=== PATIENT | male | born 1975 | race Caucasian/White ===

== ENCOUNTER 2017-04-14 19:35 | Emergency (ER) | payer BC ==
[2017-04-14] MEDS ORDERED: SODIUM CHLORIDE 0.9% 1,000 ML IV STA (19:58)
--- NOTE | 2017-04-14 20:00 | ED ---
General Adult HPI - General Chief complaint: Arrhythmia/Palpitations Stated complaint: heart concerns Time Seen by Provider: 04/14/17 19:51 Source: patient, RN notes reviewed Mode of arrival: ambulatory Limitations: no limitations - History of Present Illness Initial comments: Patient is a pleasant 41-year-old male presenting to the emergency department complaining of palpitations. Onset of symptoms was around a week ago, symptoms worsen today. Patient is currently symptom-free. Patient complains that he feels like his heart is being harder than normal. Heart is not racing. Heart is not skipping. No chest pain. No dyspnea. No history of similar symptoms previously. No leg pain or leg swelling. - Related Data Home Medications Medication Instructions Recorded Confirmed Albuterol Inhaler [Ventolin Hfa 1 - 2 puff INHALATION RT-Q6H PRN 04/14/17 Inhaler] Dextroamphetamine/Amphetamine 30 mg PO QAM 04/14/17 04/14/17 [Adderall Xr] Ergocalciferol [Vitamin D2 50,000 unit PO TU 04/14/17 04/14/17 (DRISDOL)] Losartan [Cozaar] 25 mg PO HS 04/14/17 04/14/17 PARoxetine [Paxil] 20 mg PO DAILY 04/14/17 04/14/17 buPROPion XL [Wellbutrin Xl] 150 mg PO DAILY 04/14/17 04/14/17 Allergies Allergy/AdvReac Type Severity Reaction Status Date / Time Iodinated Contrast Media - Allergy Unknown Verified 04/14/17 20:12 Oral and Childhood Review of Systems ROS Statement: Those systems with pertinent positive or pertinent negative responses have been documented in the HPI. ROS Other: All systems not noted in ROS Statement are negative. Constitutional: Denies: fever Eyes: Denies: eye pain ENT: Denies: ear pain Respiratory: Denies: cough, dyspnea Cardiovascular: Reports: palpitations. 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 Absent: chest wall tenderness Cardiovascular Exam: Present: regular rate, normal rhythm, normal heart sounds Expanded Peripheral pulses: 2+: Radial (R), Radial (L), Posterior Tibialis (R), Posterior Tibialis (L) GI/Abdominal exam: Present: soft. Absent: tenderness Extremities exam: Present: normal inspection. Absent: pedal edema, calf tenderness Neurological exam: Present: alert Psychiatric exam: Present: normal affect, normal mood Skin exam: Present: normal color. Absent: rash Course Vital Signs 04/14/17 19:36 Temperature 97.9 F Pulse Rate 87 Respiratory 16 Rate Blood Pressure 155/85 O2 Sat by Pulse 100 Oximetry EKG Findings - EKG Comments: EKG Findings:: Normal sinus rhythm at 85. Normal intervals. Normal axis. Normal QRS. Normal ST-T. Medical Decision Making - Medical Decision Making Patient reevaluated and resting comfortably in bed. Patient does have occasional PVCs and states his symptoms are associated with the PVCs noted on the monitor. Patient and family updated on results and need for follow-up. - Lab Data Result diagrams: 04/14/17 19:52 04/14/17 19:52 Lab Results 04/14/17 04/14/17 04/14/17 Range/Units 19:52 19:52 19:52 WBC 11.5 H (3.8-10.6) k/uL RBC 4.88 (4.30-5.90) m/uL Hgb 14.4 (13.0-17.5) gm/dL Hct 42.2 (39.0-53.0) % MCV 86.4 (80.0-100.0) fL MCH 29.4 (25.0-35.0) pg MCHC 34.1 (31.0-37.0) g/dL RDW 13.5 (11.5-15.5) % Plt Count 337 (150-450) k/uL Neutrophils % 68 % Lymphocytes % 19 % Monocytes % 6 % Eosinophils % 4 % Basophils % 1 % Neutrophils # 7.9 H (1.3-7.7) k/uL Lymphocytes # 2.2 (1.0-4.8) k/uL Monocytes # 0.7 (0-1.0) k/uL Eosinophils # 0.5 (0-0.7) k/uL Basophils # 0.1 (0-0.2) k/uL PT (9.0-12.0) sec INR (<1.1) APTT (22.0-30.0) sec Sodium 138 (137-145) mmol/L Potassium 4.4 (3.5-5.1) mmol/L Chloride 103 (98-107) mmol/L Carbon Dioxide 25 (22-30) mmol/L Anion Gap 10 mmol/L BUN 20 (9-20) mg/dL Creatinine 0.77 (0.66-1.25) mg/dL Est GFR (MDRD) Af Amer >60 (>60 ml/min/1.73 sqM) Est GFR (MDRD) Non-Af >60 (>60 ml/min/1.73 sqM) Glucose 106 H (74-99) mg/dL Calcium 9.2 (8.4-10.2) mg/dL Magnesium 2.0 (1.6-2.3) mg/dL Total Bilirubin 0.7 (0.2-1.3) mg/dL AST 31 (17-59) U/L ALT 33 (21-72) U/L Alkaline Phosphatase 64 (38-126) U/L Total Creatine Kinase 129 (55-170) U/L CK-MB (CK-2) 1.3 (0.0-2.4) ng/mL CK-MB (CK-2) Rel Index 1.0 Troponin I <0.012 (0.000-0.034) ng/mL Total Protein 7.2 (6.3-8.2) g/dL Albumin 4.2 (3.5-5.0) g/dL TSH 6.540 H (0.465-4.680) mIU/L Free T4 0.76 L (0.78-2.19) ng/dL 04/14/17 Range/Units 19:52 WBC (3.8-10.6) k/uL RBC (4.30-5.90) m/uL Hgb (13.0-17.5) gm/dL Hct (39.0-53.0) % MCV (80.0-100.0) fL MCH (25.0-35.0) pg MCHC (31.0-37.0) g/dL RDW (11.5-15.5) % Plt Count (150-450) k/uL Neutrophils % % Lymphocytes % % Monocytes % % Eosinophils % % Basophils % % Neutrophils # (1.3-7.7) k/uL Lymphocytes # (1.0-4.8) k/uL Monocytes # (0-1.0) k/uL Eosinophils # (0-0.7) k/uL Basophils # (0-0.2) k/uL PT 10.4 (9.0-12.0) sec INR 1.0 (<1.1) APTT 25.4 (22.0-30.0) sec Sodium (137-145) mmol/L Potassium (3.5-5.1) mmol/L Chloride (98-107) mmol/L Carbon Dioxide (22-30) mmol/L Anion Gap mmol/L BUN (9-20) mg/dL Creatinine (0.66-1.25) mg/dL Est GFR (MDRD) Af Amer (>60 ml/min/1.73 sqM) Est GFR (MDRD) Non-Af (>60 ml/min/1.73 sqM) Glucose (74-99) mg/dL Calcium (8.4-10.2) mg/dL Magnesium (1.6-2.3) mg/dL Total Bilirubin (0.2-1.3) mg/dL AST (17-59) U/L ALT (21-72) U/L Alkaline Phosphatase (38-126) U/L Total Creatine Kinase (55-170) U/L CK-MB (CK-2) (0.0-2.4) ng/mL CK-MB (CK-2) Rel Index Troponin I (0.000-0.034) ng/mL Total Protein (6.3-8.2) g/dL Albumin (3.5-5.0) g/dL TSH (0.465-4.680) mIU/L Free T4 (0.78-2.19) ng/dL - Radiology Data Radiology results: image reviewed (Chest x-ray shows no acute process) Disposition Clinical Impression: Premature contractions, cardiac, Palpitations Disposition: HOME SELF-CARE Condition: Stable Instructions: Palpitations (ED) Additional Instructions: Please follow-up with your doctor this week. Have your doctor recheck thyroid. Consider echo. Consider Holter monitor. Return for increased heart rate, chest pain, difficulty breathing, worsening symptoms or other concerns. Referrals: Amilcar Pathak MD [Primary Care Provider] - 1-2 days Time of Disposition: 21:45
[2017-04-14 20:34] LABS: Basophils # (A) 0.1 k/uL (0-0.2); Basophils % (A) 1 %; CH 29.2; Eosinophils # (A) 0.5 k/uL (0-0.7); Eosinophils % (A) 4 %; HCT 42.2 % (39.0-53.0); HDW 2.45; HGB 14.4 gm/dL (13.0-17.5); Luc # (Auto) 0.21; Luc % (Auto) 2; Lymphocytes # (A) 2.2 k/uL (1.0-4.8); Lymphocytes % (A) 19 %; MCH 29.4 pg (25.0-35.0); MCHC 34.1 g/dL (31.0-37.0); MCV 86.4 fL (80.0-100.0); Mean Platelet Volume 7.3; Monocytes # (A) 0.7 k/uL (0-1.0); Monocytes % (A) 6 %; Neutrophils # (A) 7.9 k/uL (1.3-7.7); Neutrophils % (A) 68 %; RBC 4.88 m/uL (4.30-5.90); RDW 13.5 % (11.5-15.5); WBC 11.5 k/uL (3.8-10.6); WBC (Perox) 10.54
[2017-04-14 20:48] LABS: Creatine Kinase 129 U/L (55-170); Partial Thromboplastin Time 25.4 sec (22.0-30.0); Prothrombin Time 10.4 sec (9.0-12.0)
[2017-04-14 20:49] LABS: ALT 33 U/L (21-72); AST 31 U/L (17-59); Alkaline Phosphatase 64 U/L (38-126); Anion Gap 10 mmol/L; Blood Urea Nitrogen 20 mg/dL (9-20); Calcium 9.2 mg/dL (8.4-10.2); Carbon Dioxide 25 mmol/L (22-30); Chloride 103 mmol/L (98-107); Glucose 106 mg/dL (74-99); Non-African American GFR(MDRD) >60 (>60 ml/min/1.73 sqM); Potassium 4.4 mmol/L (3.5-5.1); Sodium 138 mmol/L (137-145); Total Bilirubin 0.7 mg/dL (0.2-1.3); Total Protein 7.2 g/dL (6.3-8.2)
--- NOTE | 2017-04-14 20:53 | XR ---
EXAMINATION TYPE: XR chest 2V DATE OF EXAM: 04/14/2017 8:30 PM COMPARISON: NONE HISTORY: Dysrhythmia TECHNIQUE: Frontal and lateral views of the chest are obtained. FINDINGS: Heart and mediastinum are normal. Lungs are clear. Diaphragm is normal. There are chest le ads. IMPRESSION: Normal chest
[2017-04-14 20:59] LABS: Creatine Kinase MB 1.3 ng/mL (0.0-2.4); Troponin I <0.012 ng/mL (0.000-0.034)
[2017-04-14 21:54] VITALS: BP 147/82; PULSE 79; RESP 18; TEMP 98.2
[2017-04-14 22:07] LABS: Appearance,Urine Clear (Clear); Bacteria,Urine Rare /hpf; Bilirubin,Urine Negative (Negative); Glucose,Urine (UA) Negative (Negative); Ketones,Urine Negative (Negative); Leukocyte Esterase,Urine Moderate (Negative); Mucus,Urine Rare /hpf; Nitrite,Urine Negative (Negative); PH, Urine 5.5 (5.0-8.0); Particle Count 1958; Protein,Urine Negative (Negative); RBC,Urine 1 /hpf (0-5); Specific Gravity,Urine 1.018 (1.001-1.035); Squamous Epithelial Cell,Urine 1 /hpf (0-4); UA Billing (MACRO vs. MICRO) MICRO; Urobilinogen,Urine <2.0 mg/dL (<2.0); WBC,Urine 19 /hpf (0-5)
== END 2017-04-14 21:51 | disposition home or self-care (01) ==
LOC: EC 19:35
DX: R00.2 Palpitations (principal); I49.49 Other premature depolarization; I10 Essential (primary) hypertension; F32.9 Major depressive disorder, single episode, unspecified; F41.9 Anxiety disorder, unspecified; Z87.891 Personal history of nicotine dependence; Z79.899 Other long term (current) drug therapy; Z91.041 Radiographic dye allergy status
CPT/HCPCS: 36415; 71020; 80053; 80306; 81001; 82550; 82553; 83735; 84439; 84443; 84481; 84484; 85025; 85610; 85730; 93005; 99285

== ENCOUNTER → 2017-05-21 | Outpatient (CLI) | payer BC ==
--- NOTE | 2017-05-21 17:19 | XR ---
EXAMINATION TYPE: XR hand complete RT DATE OF EXAM: 05/21/2017 COMPARISON: NONE HISTORY: Thumb injury TECHNIQUE: 3 views FINDINGS: There is a nondisplaced transverse fracture across the base of the distal phalanx of the ri ght thumb. There is no dislocation. Joint spaces are normal. IMPRESSION: Nondisplaced fracture of the thumb.
== END | disposition home or self-care (01) ==
LOC: RADXRMAIN 16:54
PROVIDERS: ATTEND Nurse Practitioner Primary Care
DX: S62.524A Nondisplaced fracture of distal phalanx of right thumb, initial encounter for closed fracture (principal)

== ENCOUNTER → 2017-10-09 | Outpatient (CLI) | payer BC ==
--- NOTE | 2017-10-09 20:58 | CONS ---
CONSULTATION DATE OF SERVICE: 10/09/2017 42-year-old gentleman who has been evaluated in [facility] for possible obstructive sleep apnea-hypopnea syndrome. HISTORY OF PRESENT ILLNESS SLEEP WAKE EVALUATION: SLEEP SCHEDULE: Patient usual sleep schedule on working days from around 9 to 10 pm until 3:30 or 3:45 am and n weekend from about 10 or 11 pm until 5 or 6 am. FALLING ASLEEP: No problems with falling asleep. He has TV in bedroom. DURING SLEEP: Sleeps on the stomach position with snoring and witnessed episodes of stopped breathing during the sleep by his . He wakes up with choking, grinding teeth, gasping for air, sleep talking, sweating up to 4 times with 1 episode of nocturia. Positive history of twitching of the legs during the sleep apnea, restless leg symptoms, he has some twitching movements of his arms. DURING THE DAY/SLEEP WAKE EVALUATION: In the morning patient wakes up tired, has difficulties paying attention, has problems with memory, concentration, irritability, depression, anxiety, sexual dysfunction. Martin Sleepiness Scale significantly increased to 12. MEDICATIONS: Prolonged form of amphetamine, Losartan, levothyroxine, bupropion XR, paroxetine, Anastrozole. PAST MEDICAL HISTORY: Positive for hypertension, hypothyroidism, depression, ADHD, right thumb fracture recently. PAST SURGICAL HISTORY: Treatment with pin of his right thumb in 2017. SOCIAL HISTORY: Positive for smoking about 1 pack per week for 10 years. Quit about 3 years ago. Alcohol consumption occasional. FAMILY HISTORY: Heart problems, snoring, cancer. REVIEW OF SYSTEMS: Multiple awakenings from sleep, tiredness and sleepiness during the day. PHYSICAL EXAM: A 42-year-old gentleman without distress BP 144/89, HR 86, RR 16, height 5 feet 11 inches, weight 363, BMI 50.6. Neck is 17-3/4 inches in circumference. Temperature 97.7, oxygen saturation on room air 96%. Oropharynx low position of soft palate, slight restriction of nasal breathing bilaterally. ABDOMEN: Obese. Neck Supple, no JVD. Thyroid is not palpable. LUNGS Clear to percussion and to auscultation. Good air exchange. No wheezing or rhonchi. HEART S1, S2 regular. No murmurs, gallops, or rubs. ABDOMEN : Obese. Soft and nontender. Bowel sounds are present. No organomegaly appreciated. EXTREMITIES No clubbing or cyanosis. [facility] Awake, alert, and oriented X3. Cranial nerves 2 to 7 intact. There is no fasciculation or atrophy. noted. No focal deficits observed. IMPRESSION: 1. Snoring, witnessed episodes of stopped breathing during sleep, low position of soft palate, multiple awakenings from sleep, sleepiness. Martin Sleepiness Scale increased to 12. Wide necked. Obstructive sleep apnea-hypopnea syndrome. 2. Obesity BMI 50.6. 3. Hypertension. 4. Hypothyroidism. 5. Depression. 6. History of Attention-deficit/hyperactivity disorder, attention-deficit disorder. 7. Status post right thumb fracture treated with pin insertion. PLAN: 1. Polysomnography for evaluation of patient's breathing during sleep. 2. CPAP/BiPAP titration if sleep study confirms obstructive sleep apnea-hypopnea syndrome. 3. Preferable position during sleep on the side. 4. No driving if patient feels any sleepiness. Patient is aware of civil and criminal liability for unsafe driving. 5. I will see patient for follow up visit to explain results of testing and following plan. Thank you very much for this patient for consultation. Sincerely. Reuben Murillo MD, PhD, FAASM Diplomat of [place] [employer] [place] [employer] of [facility] [place] MMODL / ANTONIAN: [id number] /
== END ==
LOC: SLEEP 16:25
PROVIDERS: ATTEND Internal Medicine
DX: G47.33 Obstructive sleep apnea (adult) (pediatric) (principal); E66.9 Obesity, unspecified; I10 Essential (primary) hypertension; E03.9 Hypothyroidism, unspecified; F41.9 Anxiety disorder, unspecified; S62.50 Fracture of unspecified phalanx of thumb; F98.8 Other specified behavioral and emotional disorders with onset usually occurring in childhood and adolescence; Z68.43 Body mass index [BMI] 50.0-59.9, adult; Z79.899 Other long term (current) drug therapy; Z87.891 Personal history of nicotine dependence

== ENCOUNTER → 2018-01-09 | Outpatient (CLI) | payer BC ==
--- NOTE | 2018-01-12 12:23 | ECHOF ---
Referral Reason:[id number] Dyspnea MEASUREMENTS -------- HEIGHT: 182.9 cm WEIGHT: 163.3 kg BP: 143/83 RVIDd: 3.7 cm (< 3.3) IVSd: 1.5 cm (0.6 - 1.1) LVIDd: 3.7 cm (3.9 - 5.3) LVPWd: 1.2 cm (0.6 - 1.1) IVSs: 1.8 cm LVIDs: 2.6 cm LVPWs: 1.7 cm LA Diam: 3.6 cm (2.7 - 3.8) LAESV Index (A-L): 30.04 ml/m Ao Diam: 3.5 cm (2.0 - 3.7) AV Cusp: 2.6 cm (1.5 - 2.6) MV EXCURSION: 20.130 mm (> 18.000) MV EF SLOPE: 201 mm/s (70 - 150) EPSS: 0.7 cm MV E Luis Fernando: 0.78 m/s MV DecT: 201 ms MV A Luis Fernando: 0.55 m/s MV E/A Ratio: 1.41 FINDINGS -------- Sinus rhythm. This was a technically adequate study. The left ventricular size is normal. There is moderate concentric left ventricular hypertrophy. O verall left ventricular systolic function is normal with, an EF between 55 - 60 %. The right ventricle is mild to moderately enlarged. LA is midly dilated 29-33ml/m2. The right atrium is normal in size. The aortic valve is trileaflet and appears structurally normal. Mild mitral regurgitation is present. The tricuspid valve appears structurally normal. There is no pulmonic regurgitation present. The aortic root size is normal. The inferior vena cava is mildly dilated. There is no pericardial effusion. CONCLUSIONS -------- 1. Sinus rhythm. 2. This was a technically adequate study. 3. The left ventricular size is normal. 4. There is moderate concentric left ventricular hypertrophy. 5. Overall left ventricular systolic function is normal with, an EF between 55 - 60 %. 6. The right ventricle is mild to moderately enlarged. 7. LA is midly dilated 29-33ml/m2. 8. The right atrium is normal in size. 9. The aortic valve is trileaflet and appears structurally normal. 10. Mild mitral regurgitation is present. 11. The tricuspid valve appears structurally normal. 12. There is no pulmonic regurgitation present. 13. The aortic root size is normal. 14. The inferior vena cava is mildly dilated. 15. There is no pericardial effusion. ACCOUNT MANAGER [employer]: Ana Farrell RDCS
== END | disposition home or self-care (01) ==
LOC: RADECHMAIN 15:37
PROVIDERS: ATTEND Family Medicine
DX: I51.7 Cardiomegaly (principal); I87.8 Other specified disorders of veins; I34.0 Nonrheumatic mitral (valve) insufficiency
CPT/HCPCS: 93306

== ENCOUNTER 2021-02-25 11:06 | Emergency (ER) | payer BC ==
[2021-02-25 11:18] VITALS: RESP 18
[2021-02-25 11:59] LABS: Basophils # (A) 0.1 k/uL (0-0.2); Basophils % (A) 1 %; Eosinophils # (A) 0.3 k/uL (0-0.7); Eosinophils % (A) 4 %; HCT 42.2 % (39.0-53.0); HGB 14.7 gm/dL (13.0-17.5); Lymphocytes % (A) 16 %; MCH 29.4 pg (25.0-35.0); MCHC 34.7 g/dL (31.0-37.0); MCV 84.8 fL (80.0-100.0); Mean Platelet Volume 7.5; Monocytes # (A) 0.6 k/uL (0-1.0); Monocytes % (A) 9 %; Neutrophils # (A) 4.1 k/uL (1.3-7.7); Neutrophils % (A) 68 %; Platelet Count 409 k/uL (150-450); RBC 4.98 m/uL (4.30-5.90); RDW 13.6 % (11.5-15.5); WBC 6.1 k/uL (3.8-10.6)
[2021-02-25] MEDS ORDERED: METOCLOPRAMIDE 5 MG/ML 2 ML VIAL IVP STA (12:04)
[2021-02-25] MEDS ORDERED: SODIUM CHLORIDE 0.9% 500 ML 500 ML IV STA (12:04)
--- NOTE | 2021-02-25 12:06 | XR ---
EXAMINATION TYPE: XR chest 1V portable DATE OF EXAM: 02/25/2021 Comparison: 04/14/2017 Clinical History: 45-year-old male shortness of breath, COVID. Findings: The heart is normal size. Patchy airspace opacity within the right lung. No pleural effusion. Impression: Patchy airspace disease on the right.
--- NOTE | 2021-02-25 12:09 | ED ---
General Adult HPI - General Chief complaint: Upper Respiratory Infection Stated complaint: Covid+, dizziness Time Seen by Provider: 02/25/21 11:30 Source: patient Mode of arrival: ambulatory Limitations: no limitations - History of Present Illness Initial comments: Dictation was produced using [employer] dictation software. please excuse any grammatical, word or spelling errors. This patient was cared for during a federal and state declared state of emergency secondary to Covid 19 Chief Complaint: 45-year-old just to the emergency department for persistent cold symptoms History of Present Illness: 45-year-old male he has past medical history of hypertension. He presents to the emergency department for persistent cold symptoms. Patient states he is short of breath and feeling achy and having general malaise. Sinus symptoms for approximately 2 weeks. Report having some episodes of palpitations where he feels like his heart racing for couple minutes at a time. The ROS documented in this emergency department record has been reviewed and confirmed by me. Those systems with pertinent positive or negative responses have been documented in the HPI. All other systems are other negative and/or noncontributory. PHYSICAL EXAM: General Impression: Alert and oriented x3, not in acute distress HEENT: Normocephalic atraumatic, extra-ocular movements intact, pupils equal and reactive to light bilaterally, mucous membranes moist. Cardiovascular: Heart regular rate and rhythm Chest: Able to complete full sentences, no retractions, no tachypnea Abdomen: abdomen soft, non-tender, non-distended, no organomegaly Musculoskeletal: Pulses present and equal in all extremities, no peripheral edema Motor: no focal deficits noted Neurological: CN II-XII grossly intact, no focal motor or sensory deficits noted Skin: Intact with no visualized rashes Psych: Normal affect and mood ED course: 45 y Old male presents with persistent Covid symptoms. Vital signs upon arrival shows heart rate of 101, rest of vital signs within acceptable limits. Patient is not hypoxic. EKG interpretation: Ventricular rate 83, normal sinus rhythm, PA interval 170, QRS 104, QTC 432. No PA prolongation, no QTC prolongation, no ST or T-wave changes noted. EKG compared to 04/14/2017 showing no changes. Overall, this EKG is unremarkable Laboratory evaluation obtained. CBC, metabolic panel is unremarkable. Given degree of patient's symptoms CT angios the chest was obtained showing no evidence of pulmonary embolism but there is ground glass changes consistent with: Pneumonia. Patient monitored in the emergency department. He continues to be non-hypoxic. Is well-appearing at bedside. Patient is not a candidate for monoclonal antibodies because his duration of symptoms were greater than 10 days. This point patient clinical stable for discharge. He is advised follow- up w primary care physician. Patient given prescription for nausea medicine. - Related Data Home Medications Medication Instructions Recorded Confirmed Anastrozole [Arimidex] 1 mg PO TH 02/25/21 02/25/21 Escitalopram [Lexapro] 20 mg PO DAILY 02/25/21 02/25/21 Levothyroxine Sodium 112 mcg PO DAILY 02/25/21 02/25/21 Lisdexamfetamine Dimesylate 70 mg PO DAILY 02/25/21 02/25/21 [Vyvanse] Losartan [Cozaar] 50 mg PO DAILY 02/25/21 02/25/21 PARoxetine HCL [Paxil] 40 mg PO DAILY 02/25/21 02/25/21 buPROPion HCL [Wellbutrin XL] 300 mg PO DAILY 02/25/21 02/25/21 Previous Rx's Medication Instructions Recorded Ondansetron Odt [Zofran Odt] 4 mg PO Q8HR PRN #12 tab 02/25/21 Allergies Allergy/AdvReac Type Severity Reaction Status Date / Time Iodinated Contrast Media Allergy Unknown Verified 02/25/21 13:37 [Iodinated Contrast Media - Childhood Oral and] Review of Systems ROS Statement: Those systems with pertinent positive or pertinent negative responses have been documented in the HPI. ROS Other: All systems not noted in ROS Statement are negative. 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 History of Any Multi-Drug Resistant Organisms: None Reported Additional Past Surgical History / Comment(s): spinal taps Past Psychological History: Anxiety, Depression Smoking Status: Former smoker Past Alcohol Use History: Occasional Past Drug Use History: None Reported General Exam Limitations: no limitations Course Vital Signs 02/25/21 02/25/21 11:16 11:36 Temperature 98.6 F Pulse Rate 101 H Respiratory 18 18 Rate Blood Pressure 125/85 O2 Sat by Pulse 96 Oximetry Medical Decision Making - Lab Data Result diagrams: 02/25/21 11:46 02/25/21 11:46 Lab Results 02/25/21 02/25/21 02/25/21 Range/Units 11:46 11:46 11:46 WBC 6.1 (3.8-10.6) k/uL RBC 4.98 (4.30-5.90) m/uL Hgb 14.7 (13.0-17.5) gm/dL Hct 42.2 (39.0-53.0) % MCV 84.8 (80.0-100.0) fL MCH 29.4 (25.0-35.0) pg MCHC 34.7 (31.0-37.0) g/dL RDW 13.6 (11.5-15.5) % Plt Count 409 (150-450) k/uL MPV 7.5 Neutrophils % 68 % Lymphocytes % 16 % Monocytes % 9 % Eosinophils % 4 % Basophils % 1 % Neutrophils # 4.1 (1.3-7.7) k/uL Lymphocytes # 1.0 (1.0-4.8) k/uL Monocytes # 0.6 (0-1.0) k/uL Eosinophils # 0.3 (0-0.7) k/uL Basophils # 0.1 (0-0.2) k/uL Sodium 137 (137-145) mmol/L Potassium 4.3 (3.5-5.1) mmol/L Chloride 107 (98-107) mmol/L Carbon Dioxide 23 (22-30) mmol/L Anion Gap 7 mmol/L BUN 12 (9-20) mg/dL Creatinine 0.74 (0.66-1.25) mg/dL Est GFR (CKD-EPI)AfAm >90 (>60 ml/min/1.73 sqM) Est GFR (CKD-EPI)NonAf >90 (>60 ml/min/1.73 sqM) Glucose 111 H (74-99) mg/dL Calcium 8.5 (8.4-10.2) mg/dL Troponin I <0.012 (0.000-0.034) ng/mL Disposition Clinical Impression: COVID-19 Disposition: HOME SELF-CARE Condition: Fair Instructions (If sedation given, give patient instructions): Coronavirus Disease 2019 (COVID-19) Additional Instructions: Today you were evaluated for symptoms consistent with upper respiratory i nfection. Today you were evaluated for Covid 19. Your are stable for discharge, however it is instructed to to seek immediate medical attention especially if you develop worsening symptoms especially respiratory distress. If possible, try to obtain a pulse oximeter and monitor your oxygen at home. In the meantime please remain in quarantine for 14 days. For any other questions please contact Travis for here in emergency department or [facility] at [phone] Prescriptions: Ondansetron Odt [Zofran Odt] 4 mg PO Q8HR PRN #12 tab PRN Reason: Nausea Is patient prescribed a controlled substance at d/c from ED?: No Referrals: Amilcar Pathak MD [Primary Care Provider] - 1-2 days Time of Disposition: 14:21
[2021-02-25 12:18] LABS: African American GFR (CKD) >90 (>60 ml/min/1.73 sqM); Anion Gap 7 mmol/L; Blood Urea Nitrogen 12 mg/dL (9-20); Calcium 8.5 mg/dL (8.4-10.2); Carbon Dioxide 23 mmol/L (22-30); Chloride 107 mmol/L (98-107); Glucose 111 mg/dL (74-99); Non-African American GFR(CKD) >90 (>60 ml/min/1.73 sqM); Sodium 137 mmol/L (137-145)
[2021-02-25 12:26] LABS: Potassium 4.3 mmol/L (3.5-5.1)
[2021-02-25] MEDS ORDERED: diphenhydrAMINE 50 MG/ML 1 ML VIAL IVP ONE (12:31)
[2021-02-25] MEDS ORDERED: FAMOTIDINE 20 MG/2 ML VIAL IV ONE (12:31)
[2021-02-25] MEDS ORDERED: methylPREDNISolone SOD SUCCI 125 MG/2 ML VIAL IV ONE (12:31)
--- NOTE | 2021-02-25 14:03 | CT ---
EXAMINATION TYPE: CT angio chest DATE OF EXAM: 02/25/2021 COMPARISON: Radiograph same day HISTORY: 45-year-old male positive d-dimer, shortness of breath TECHNIQUE: Contiguous axial scanning of the chest performed with IV Contrast, patient injected with 1 00 mL of Isovue 370. Coronal/sagittal MIP reconstructions performed. CT DLP: 846.4 mGycm Automated exposure control for dose reduction was used. FINDINGS: A normal size without pericardial effusion. No flattening of the interventricular septum or reflux of contrast into the hepatic veins. Ectatic aortic root at 3.8 cm. Conventional arch vessel branching anatomy. Scattered borderline sized mediastinal lymph nodes measuring up to 1.1 cm. Right hilar lymph nodes me asure up to 1.6 cm. Some prominent right axillary lymph nodes measure up to 1.7 cm. No evidence for pulmonary embolus. Bilateral patchy peripheral groundglass opacities throughout the lungs. No pleural effusion. Calcified granuloma within the spleen. Mild stool bordering the visualized upper abdomen. Bones: No osseous destructive process. IMPRESSION: 1. NO EVIDENCE FOR PULMONARY EMBOLUS. 2. PATCHY PERIPHERAL GROUNDGLASS CHANGES OF BILATERAL COVID PNEUMONIA.
[2021-02-25] MEDS ORDERED: ONDANSETRON 4 MG ODT STARTER PACK 2 TAB BTL PO STA (14:21)
[2021-02-25 14:31] VITALS: BP 151/89; PULSE 90; TEMP 99.7
== END 2021-02-25 14:31 | disposition home or self-care (01) ==
LOC: EC 11:06
DX: U07.1 COVID-19 (principal); F41.9 Anxiety disorder, unspecified; I10 Essential (primary) hypertension; F32.9 Major depressive disorder, single episode, unspecified; J12.82 Pneumonia due to coronavirus disease 2019; Z79.899 Other long term (current) drug therapy; Z87.891 Personal history of nicotine dependence
CPT/HCPCS: 36415; 93005; 80048; 84484; 85025; 71045; 71275; 99285; 96374; 96375; J1200; J2765; J2930; S0119; Q9967

== ENCOUNTER 2021-07-17 16:28 | Observation (INO) | payer BC ==
[2021-07-17] MEDS ORDERED: ACETAMINOPHEN TAB 500 MG TAB PO STA ×2 (19:32→19:34)
[2021-07-17] MEDS ORDERED: SODIUM CHLORIDE 0.9% 1,000 ML IV STA (19:34)
[2021-07-17] MEDS ORDERED: KETOROLAC 15 MG/ML 1 ML VIAL IVP STA (19:34)
--- NOTE | 2021-07-17 19:37 | ED ---
General Adult HPI - General Chief complaint: Skin/Abscess/Foreign Body Stated complaint: possible med reaction Time Seen by Provider: 07/17/21 19:04 Source: patient Mode of arrival: ambulatory Limitations: no limitations - History of Present Illness Initial comments: 46-year-old male presents to the emergency room for a chief complaint of left arm cellulitis. Patient states that Friday morning he woke up and had a 2 cm x 2 cm area of redness and swelling to the left proximal forearm. States that he had a fever of 100. States over the next few days the redness worsened. Yesterday he did go to urgent care after he had had a fever for 3 days up to 101.2 max. He was given Keflex and Bactrim. Patient has been on antibiotics for almost 24 hours and states the redness has stayed about the same. No improvement however no worsening. No pain with flexion of the elbow.Patient has no other complaints at this time including shortness of breath, chest pain, abdominal pain, nausea or vomiting, headache, or visual changes. - Related Data Home Medications Medication Instructions Recorded Confirmed Lisdexamfetamine Dimesylate 70 mg PO DAILY 02/25/21 07/17/21 [Vyvanse] Losartan [Cozaar] 50 mg PO DAILY 02/25/21 07/17/21 buPROPion HCL [Wellbutrin XL] 300 mg PO DAILY 02/25/21 07/17/21 Allergies Allergy/AdvReac Type Severity Reaction Status Date / Time Iodinated Contrast Media Allergy Unknown Verified 07/17/21 21:03 [Iodinated Contrast Media - Childhood Oral and] Review of Systems ROS Statement: Those systems with pertinent positive or pertinent negative responses have been documented in the HPI. ROS Other: All systems not noted in ROS Statement are negative. 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 Absent: tenderness Respiratory exam: Present: normal lung sounds bilaterally. Absent: respiratory distress, wheezes Cardiovascular Exam: Present: regular rate, normal rhythm, normal heart sounds Extremities exam: Present: full ROM (Full range of motion of the left wrist and elbow no pain with flexion or extension of the elbow), normal capillary refill (Capillary refill less than 2 seconds, radial pulse 2+ left upper extremity), other (Moderate edema and erythema noted of the left forearm and of the distal upper arm. No significant joint swelling of the elbow. There is no abscess tiffani ntified.). Absent: tenderness (No significant tenderness to the left arm) Course Vital Signs 07/17/21 07/17/21 17:06 20:15 Temperature 99.7 F H Pulse Rate 90 81 Respiratory 18 20 Rate Blood Pressure 145/89 110/59 O2 Sat by Pulse 99 95 Oximetry Medical Decision Making - Medical Decision Making Vitals are stable. CBC CMP unremarkable. X-ray of the forearm however does show soft tissue swelling and subcutaneous edema. Patient was evaluated by Dr. Bhat. At this time patient's cellulitis is extensive and he has been on antibiotics for 24 hours with fevers x 3 days. Recommending admission for IV antibiotics. Patient agreeable. - Lab Data Result diagrams: 07/17/21 19:41 07/17/21 19:41 Lab Results 07/17/21 07/17/21 07/17/21 Range/Units 19:41 19:41 19:41 WBC 8.4 (3.8-10.6) k/uL RBC 4.75 (4.30-5.90) m/uL Hgb 14.0 (13.0-17.5) gm/dL Hct 41.9 (39.0-53.0) % MCV 88.1 (80.0-100.0) fL MCH 29.4 (25.0-35.0) pg MCHC 33.4 (31.0-37.0) g/dL RDW 14.3 (11.5-15.5) % Plt Count 254 (150-450) k/uL MPV 8.4 Neutrophils % 69 % Lymphocytes % 17 % Monocytes % 6 % Eosinophils % 4 % Basophils % 1 % Neutrophils # 5.8 (1.3-7.7) k/uL Lymphocytes # 1.4 (1.0-4.8) k/uL Monocytes # 0.5 (0-1.0) k/uL Eosinophils # 0.4 (0-0.7) k/uL Basophils # 0.1 (0-0.2) k/uL Sodium 137 (137-145) mmol/L Potassium 4.2 (3.5-5.1) mmol/L Chloride 103 (98-107) mmol/L Carbon Dioxide 23 (22-30) mmol/L Anion Gap 11 mmol/L BUN 17 (9-20) mg/dL Creatinine 0.84 (0.66-1.25) mg/dL Est GFR (CKD-EPI)AfAm >90 (>60 ml/min/1.73 sqM) Est GFR (CKD-EPI)NonAf >90 (>60 ml/min/1.73 sqM) Glucose 72 L (74-99) mg/dL Plasma Lactic Acid Foster 2.0 (0.7-2.0) mmol/L Calcium 9.1 (8.4-10.2) mg/dL Total Bilirubin 0.4 (0.2-1.3) mg/dL AST 23 (17-59) U/L ALT 16 (4-49) U/L Alkaline Phosphatase 58 (38-126) U/L Total Protein 6.7 (6.3-8.2) g/dL Albumin 4.0 (3.5-5.0) g/dL Disposition Clinical Impression: Cellulitis, Failure of outpatient treatment Disposition: ADMITTED IP TO THIS HOSP Is patient prescribed a controlled substance at d/c from ED?: No Referrals: Amilcar Pathak MD [Primary Care Provider] - 1-2 days Time of Disposition: 21:25
[2021-07-17 20:05] LABS: Basophils # (A) 0.1 k/uL (0-0.2); Basophils % (A) 1 %; Eosinophils # (A) 0.4 k/uL (0-0.7); Eosinophils % (A) 4 %; HCT 41.9 % (39.0-53.0); Lymphocytes # (A) 1.4 k/uL (1.0-4.8); Lymphocytes % (A) 17 %; MCH 29.4 pg (25.0-35.0); MCHC 33.4 g/dL (31.0-37.0); MCV 88.1 fL (80.0-100.0); Mean Platelet Volume 8.4; Monocytes # (A) 0.5 k/uL (0-1.0); Monocytes % (A) 6 %; Neutrophils # (A) 5.8 k/uL (1.3-7.7); Neutrophils % (A) 69 %; Platelet Count 254 k/uL (150-450); RBC 4.75 m/uL (4.30-5.90); RDW 14.3 % (11.5-15.5); WBC 8.4 k/uL (3.8-10.6)
[2021-07-17 20:14] LABS: ALT 16 U/L (4-49); AST 23 U/L (17-59); African American GFR (CKD) >90 (>60 ml/min/1.73 sqM); Alkaline Phosphatase 58 U/L (38-126); Anion Gap 11 mmol/L; Blood Urea Nitrogen 17 mg/dL (9-20); Calcium 9.1 mg/dL (8.4-10.2); Carbon Dioxide 23 mmol/L (22-30); Chloride 103 mmol/L (98-107); Glucose 72 mg/dL (74-99); Non-African American GFR(CKD) >90 (>60 ml/min/1.73 sqM); Sodium 137 mmol/L (137-145); Total Bilirubin 0.4 mg/dL (0.2-1.3); Total Protein 6.7 g/dL (6.3-8.2)
[2021-07-17 20:15] LABS: Potassium 4.2 mmol/L (3.5-5.1)
--- NOTE | 2021-07-17 20:55 | XR ---
EXAMINATION TYPE: XR forearm LT DATE OF EXAM: 07/17/2021 COMPARISON: NONE HISTORY: . cellulitis,. TECHNIQUE: AP and lateral views of the left forearm FINDINGS: No evidence of osseous erosion or periosteal reaction. No acute fracture. No dislocation. J oint spaces and alignment are normal. Normal mineralization. There is soft tissue swelling and subcut aneous edema most notably of the ulnar and posterior aspect of the left forearm. IMPRESSION: Left forearm soft tissue swelling and subcutis edema. No acute osseous normality.
[2021-07-17] MEDS ORDERED: ACETAMINOPHEN TAB 325 MG TAB PO PRN (21:25)
[2021-07-17] MEDS ORDERED: MORPHINE SULFATE 4 MG/ML SYRINGE IV PRN (21:25)
[2021-07-17] MEDS ORDERED: KETOROLAC 15 MG/ML 1 ML VIAL IVP PRN (21:25)
[2021-07-17] MEDS ORDERED: NALOXONE 0.4 MG/ML 1 ML VIAL IV PRN (21:25)
[2021-07-17] MEDS: SODIUM CHLORIDE 0.9% 1,000 ML IV SCH (21:35)
[2021-07-17] MEDS ORDERED: VANCOMYCIN IV PER PHARMACY 1 EACH MISC MISCELLANE PRN (22:19)
[2021-07-17] MEDS ORDERED: VANCOMYCIN 2,000 MG in SODIUM CHLORIDE 0.9% 500 ML 500 ML IVPB ONE (22:30)
[2021-07-18] MEDS ORDERED: ONDANSETRON 4 MG/2 ML VIAL IVP PRN (00:09)
--- NOTE | 2021-07-18 00:21 | P.HPIM ---
History of Present Illness H&P Date: 07/17/21 Chief Complaint: left forearm swelling and reddness 46 year old male with hypertension patient coming in due to worsening left forearm swelling and erythema despite using PO antibiotics. 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 he only used it yesterday, and today he was concerned that the forearm felt more tense, more erythematus and pain ful , for which he decided to come in here for further treatment. he denies any history of immunosupression , DM, cancer, or HIV. he denies any loss of limb function , he noticed that it started to look better with IV antibiotics. he reports some nausea, but no vomiting, denies any chest pain or trouble breathing, denies any history of cellulitis or recurrent infections. he feels fine otherwise, but his appetite is down today . He denies any more fever since he started antibiotics PO. in the ED workup was pretty much unremarkable xrays failed to show any fractures or foreign bodies. Review of Systems Pertinent positives as noted in HPI. 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 History of Any Multi-Drug Resistant Organisms: None Reported Additional Past Surgical History / Comment(s): spinal taps Past Psychological History: Anxiety, Depression Smoking Status: Former smoker Past Alcohol Use History: Occasional Past Drug Use History: None Reported - Past Family History famly Family Medical History: No Reported History Medications and Allergies Home Medications Medication Instructions Recorded Confirmed Type Lisdexamfetamine Dimesylate 70 mg PO DAILY 02/25/21 07/17/21 History [Vyvanse] Losartan [Cozaar] 50 mg PO DAILY 02/25/21 07/17/21 History buPROPion HCL [Wellbutrin XL] 300 mg PO DAILY 02/25/21 07/17/21 History Allergies Allergy/AdvReac Type Severity Reaction Status Date / Time Iodinated Contrast Media Allergy Unknown Verified 07/17/21 21:03 [Iodinated Contrast Media - Childhood Oral and] Physical Exam Vitals: Vital Signs Temp Pulse Resp BP Pulse Ox 07/17/21 22:00 98.6 F 20 07/17/21 20:15 81 20 110/59 95 07/17/21 17:06 99.7 F H 90 18 145/89 99 Intake and Output 07/17/21 07/17/21 07/18/21 14:59 22:59 06:59 Other: Weight 131.542 kg Constitutional: No acute distress, conversant, pleasant Eyes: Anicteric sclerae, moist conjunctiva, Pupils equal round reactive to light ENMT: NC/AT Oropharynx clear, no erythema, or exudates Neck: Supple, FROM, no masses, or JVD No carotid bruits No thyromegaly Lungs: Clear to auscultation Clear to percussion Normal respiratory effort, no accessory muscle use Cardiovascular: Heart regular in rate and rhythm, No murmurs, gallops, or rubs No peripheral edema Abdominal: Soft Nontender, no guarding, rebound or rigidity Abdomen moving with respiration Normoactive bowel sounds No hepatomegaly, No splenomegaly No palpable mass No abdominal wall hernia noted Skin: swelling and tense feeling of the skin over the left forearm, capillary refill is immediate, patient denies any numbness or tingling over his fingers, no loss of function , no tenderness to passive range of motion, no limitation to active range of motion. erythema over the forearm circumferential , with areas of induration around the proximal region of the left forearm there is one papule with white head over the dorsal aspect of the proximal left forearm no other openn wounds or cutes. no other site of entries identified,. Extremities: No digital cyanosis No clubbing Pedal pulses intact and symmetrical Radial pulses intact and symmetrical No calf tenderness Psychiatric: Alert and oriented to person, place and time Appropriate affect fair judgement Neuro Muscles Strength 5/5 in all 4 extremities Sensation to light touch grossly present throughout Cranial nerves II-XII grossly intact No focal sensory deficits Lymphatics: no palpable cervical or supraclavicular , or inguinal lymph nodes Results CBC & Chem 7: 07/17/21 19:41 07/17/21 19:41 Labs: Abnormal Lab Results - Last 24 Hours (Table) 07/17/21 Range/Units 19:41 Glucose 72 L (74-99) mg/dL Assessment and Plan Assessment: cellulitis of the left forearm , failed outpatient therapy with worsening swelling and induration , for which patient decided to seek further help follow up cultures vancomycine IV consider DC on bactrim DS bid to finish a 10 day course of antibiotics monitor for neuro vascular compramise , monitor for compartment syndrome check CK xray no foreign bodies or fractures pain control with tylenol IVF hydration with normal saline monitor vital signs hypertension resume home meds vital signs stable labs overall unremarkable resume home meds follow up am labs full code DVT prophylaxis: hepairn sc tid Discussed with: Patient, ER Anticipated length of stay <than [address]: home A total of 65 minutes was spent on the care of this complex patient more than 50% of the time was spent in counseling and care coordination.
[2021-07-18] MEDS: SODIUM CHLORIDE 0.9% 1,000 ML IV SCH ×3 (05:33→23:19)
[2021-07-18] MEDS: VANCOMYCIN 2,000 MG in SODIUM CHLORIDE 0.9% 500 ML 500 ML IVPB SCH ×3 (06:53→23:21)
[2021-07-18 09:25] LABS: Basophils # (A) 0.04 X 10*3/uL (0.00-0.10); Basophils % (A) 0.7 %; Eosinophils # (A) 0.36 X 10*3/uL (0.04-0.35); Eosinophils % (A) 6.6 %; HCT 40.9 % (39.6-50.0); HGB 12.6 g/dL (13.0-17.0); Lymphocytes # (A) 1.54 X 10*3/uL (0.90-5.00); Lymphocytes % (A) 28.1 %; MCH 27.9 pg (27.0-32.0); MCHC 30.8 g/dL (32.0-37.0); MCV 90.5 fL (80.0-97.0); Mean Platelet Volume 11.1 fL (9.5-12.2); Monocytes # (A) 0.78 X 10*3/uL (0.20-1.00); Monocytes % (A) 14.2 %; Neutrophils # (A) 2.75 X 10*3/uL (1.80-7.70); Platelet Count 273 X 10*3/uL (140-440); RBC 4.52 X 10*6/uL (4.40-5.60); RDW 15.3 % (11.5-14.5); WBC 5.49 X 10*3/uL (4.50-10.00)
[2021-07-18] MEDS: LOSARTAN 50 MG TAB PO SCH (10:17)
[2021-07-18] MEDS: HEPARIN SODIUM,PORCINE/PF 5,000 UNIT/0.5 ML SYRINGE SQ SCH ×4 (10:18→23:31)
[2021-07-18] MEDS: NON FORMULARY DRUG (Lisdexamfetamine Dimesylate [Vyvanse] 70 MG Capsule) PO SCH (10:18)
[2021-07-18 10:40] LABS: Albumin 3.5 g/dL (3.80-4.90); Albumin/Globulin Ratio 1.75 (1.60-3.17); Anion Gap 11.5 mmol/L (4.00-12.00); BUN/Creat Ratio 18.75 Ratio (12.00-20.00); Carbon Dioxide 20.5 mmol/L (21.6-31.8); Non-African American GFR(CKD) 107.9 (60.0-200.0); Potassium 4.6 mmol/L (3.5-5.5); Total Bilirubin 0.3 mg/dL (0.2-1.2); Total Protein 5.5 g/dL (6.2-8.2)
[2021-07-18] MEDS: buPROPion XL 300 MG TAB.ER.24H PO SCH (12:03)
--- NOTE | 2021-07-18 13:34 | P.PN ---
Subjective Progress Note Date: 07/18/21 No new complaints today. Reports some improvement in pain and redness. Still has presence of pain in left elbow. On vancomycin. Objective - Vital Signs Vital signs: Vital Signs Temp 98.6 F 07/17/21 22:00 Pulse 65 07/18/21 06:54 Resp 20 07/18/21 06:54 BP 123/80 07/18/21 06:54 Pulse Ox 95 07/18/21 06:54 Intake & Output 07/17/21 07/18/21 07/18/21 18:59 06:59 18:59 Weight 131.542 kg 131.542 kg - Exam Gen: awake, alert HEENT: normocephalic, atraumatic, good hearing acuity, moist mucous membranes Resp: good air exchange, breathing comfortably with no accessory muscle use CVS: good distal perfusion x 4, GI: soft, NTTP, ND : no SPT, no CVAT, cueto catheter not present MSK: no pitting edema, no clubbing, left elbow erythema and non-pitting edema Neuro: non-focal, moving all extremities Psych: cooperative, euthymic mood - Labs CBC & Chem 7: 07/18/21 04:42 07/18/21 04:42 Labs: Abnormal Lab Results - Last 24 Hours (Table) 07/17/21 07/18/21 07/18/21 Range/Units 19:41 04:42 04:42 Hgb 12.6 L (13.0-17.0) g/dL MCHC 30.8 L (32.0-37.0) g/dL RDW 15.3 H (11.5-14.5) % Eosinophils # 0.36 H (0.04-0.35) X 10*3/uL Carbon Dioxide 20.5 L (21.6-31.8) mmol/L Glucose 72 L (74-99) mg/dL Calcium 8.0 L (8.7-10.3) mg/dL Total Protein 5.5 L (6.2-8.2) g/dL Albumin 3.50 L (3.80-4.90) g/dL Assessment and Plan Assessment: cellulitis of the left forearm , failed outpatient therapy with worsening swelling and induration , for which patient decided to seek further help follow up cultures vancomycin IV consider DC on bactrim DS bid to finish a 10 day course of antibiotics monitor for neuro vascular compramise , monitor for compartment syndrome check CK xray no foreign bodies or fractures pain control with tylenol IVF hydration with normal saline monitor vital signs US of elbow to r/o abscess formation hypertension resume home meds vital signs stable labs overall unremarkable resume home meds follow up am labs full code DVT prophylaxis: hepairn sc tid Discussed with: Patient, ER Anticipated length of stay <than [address]: home
--- NOTE | 2021-07-18 17:20 | US ---
EXAMINATION TYPE: US extremity nonvasc mass LT DATE OF EXAM: 07/18/2021 COMPARISON: NONE CLINICAL HISTORY: 46-year-old male r/o abscess over cellulitis. Bug bite 4 days ago in left forearm, tender, red, swollen Technique: Targeted ultrasound examination along the left forearm at the site of swelling, pain, and redness. Findings: [employer] notes: Obvious edema noted with no fluid collections seen IMPRESSION: Prominent subcutaneous soft tissue edema with some hyperemia which could represent cellulitis. No dis crete abscess in the superficial tissues along the scanned area.
[2021-07-19] MEDS: SODIUM CHLORIDE 0.9% 1,000 ML IV SCH ×2 (04:29→08:10)
[2021-07-19 04:52] VITALS: PULSE 66
[2021-07-19 06:54] LABS: ALT 13 U/L (4-49); AST 16 U/L (17-59); African American GFR (CKD) >90 (>60 ml/min/1.73 sqM); Albumin 2.9 g/dL (3.5-5.0); Albumin/Globulin Ratio 1.2; Alkaline Phosphatase 53 U/L (38-126); Anion Gap 5 mmol/L; Blood Urea Nitrogen 12 mg/dL (9-20); Calcium 8.4 mg/dL (8.4-10.2); Carbon Dioxide 24 mmol/L (22-30); Chloride 110 mmol/L (98-107); Globulin 2.4 g/dL; Glucose 91 mg/dL (74-99); Non-African American GFR(CKD) >90 (>60 ml/min/1.73 sqM); Potassium 4.2 mmol/L (3.5-5.1); Sodium 139 mmol/L (137-145); Total Bilirubin 0.1 mg/dL (0.2-1.3); Total Protein 5.3 g/dL (6.3-8.2)
[2021-07-19] MEDS: NON FORMULARY DRUG (Lisdexamfetamine Dimesylate [Vyvanse] 70 MG Capsule) PO SCH (08:09)
[2021-07-19] MEDS: HEPARIN SODIUM,PORCINE/PF 5,000 UNIT/0.5 ML SYRINGE SQ SCH (08:09)
[2021-07-19] MEDS: LOSARTAN 50 MG TAB PO SCH (08:09)
[2021-07-19] MEDS: buPROPion XL 300 MG TAB.ER.24H PO SCH (08:09)
[2021-07-19] MEDS: VANCOMYCIN 2,000 MG in SODIUM CHLORIDE 0.9% 500 ML 500 ML IVPB SCH (08:20)
[2021-07-19 09:05] VITALS: BP 116/74; RESP 17; TEMP 97.8
[2021-07-19] MEDS ORDERED: VANCOMYCIN TROUGH DUE 1 EACH MISC MISCELLANE ONE (14:00)
--- NOTE | 2021-07-19 14:54 | P.DS ---
Providers Date of admission: 07/17/21 21:22 Expected date of discharge: 07/19/21 Attending physician: Katiuska De Souza MD Primary care physician: Amilcar Zimmer [facility] Course: Left arm cellulitis Patient was admitted with left arm cellulitis which had failed outpatient cephalexin. He was admitted and placed on vancomycin and monitored. His cellulitis and pain had improved with IV medication. He had ultrasound of the left upper extremity to ensure no drainable abscess, which was negative. He was discharged with an additional 6 days of Bactrim double strength twice a day to complete a ten-day course of antibiotics. with worsening swelling and induration , for which patient decided to seek further help Assessment: Gen: awake, alert HEENT: normocephalic, atraumatic, good hearing acuity, moist mucous membranes Resp: good air exchange, breathing comfortably with no accessory muscle use CVS: good distal perfusion x 4, GI: soft, NTTP, ND : no SPT, no CVAT, cueto catheter not present MSK: no pitting edema, no clubbing, left elbow erythema and non-pitting edema Neuro: non-focal, moving all extremities Psych: cooperative, euthymic mood Patient Condition at Discharge: Good Plan - Discharge Summary Discharge Rx Participant: No New Discharge Prescriptions: New Sulfamethox-Tmp 800-160Mg [Bactrim DS 800-160 mg] 1 tab PO Q12HR #12 tab Continue Losartan [Cozaar] 50 mg PO DAILY Lisdexamfetamine Dimesylate [Vyvanse] 70 mg PO DAILY buPROPion HCL [Wellbutrin XL] 300 mg PO DAILY Discharge Medication List Lisdexamfetamine Dimesylate [Vyvanse] 70 mg PO DAILY 02/25/21 [History] Losartan [Cozaar] 50 mg PO DAILY 02/25/21 [History] buPROPion HCL [Wellbutrin XL] 300 mg PO DAILY 02/25/21 [History] Sulfamethox-Tmp 800-160Mg [Bactrim DS 800-160 mg] 1 tab PO Q12HR #12 tab 07/19/21 [Rx] Follow up Appointment(s)/Referral(s): Amilcar Pathak MD [Primary Care Provider] - 1-2 days Patient Instructions/Handouts: Cellulitis (DC) Discharge Disposition: HOME SELF-CARE
== END 2021-07-19 12:55 | disposition home or self-care (01) ==
LOC: EC 16:28 → 6NMEDSUR 21:22 → 1SOBS 07-18 07:52 → 6NMEDSUR 07-18 14:20
PROVIDERS: ADMIT Internal Medicine; ATTEND Internal Medicine
DX: L03.114 Cellulitis of left upper limb (principal); F32.9 Major depressive disorder, single episode, unspecified; F41.9 Anxiety disorder, unspecified; I10 Essential (primary) hypertension; T63.301D Toxic effect of unspecified spider venom, accidental (unintentional), subsequent encounter; Z79.899 Other long term (current) drug therapy; Z87.891 Personal history of nicotine dependence
CPT/HCPCS: 96376; 96361 ×2; 96366 ×3; 96372; 96365; 96367; 96375; 99284; 36415; 80053 ×3; 82550; 83605; 85025 ×2; 87040; 73090; 76882; G0378 ×3; J3370 ×3; J0690; J1885 ×2; J1644